=== PATIENT | female | born 1980 | race Caucasian/White ===

== ENCOUNTER → 2020-10-03 | Outpatient (CLI) | payer OTHER ==
[2020-10-03 09:59] LABS: ALBUMIN 3.9 gm/dl (3.1-4.5); BUN 9 mg/dl (7-24); CHLORIDE 108 mmol/L (98-107); POTASSIUM 3.7 mmol/L (3.5-5.1); SODIUM 140 mmol/L (136-145)
[2020-10-03 10:08] LABS: ALKALINE PHOSPHATASE 25 U/L (45-117); CHOLESTEROL 219 mg/dL (<200); CREATININE 0.66 mg/dL (0.55-1.02); FREE T4 1.05 ng/dl (0.76-1.46); HDL CHOLESTEROL 76 mg/dl (40-60); LDL CHOLESTEROL 107 mg/dL (9-159); SGOT/AST 14 IU/L (3-35); SGPT/ALT 17 U/L (12-78); THYROID STIM HORMONE (HS) 0.972 uIU/ml (0.358-4.75); TOTAL PROTEIN 8.2 gm/dL (6.4-8.2); TRIGLYCERIDES 182 mg/dl (<150); VLDL CHOLESTEROL 36 mg/dL (6-40)
[2020-10-03 10:19] LABS: BASO % 0.6 % (0.0-1.0); EOS # 0.1 10*3/uL (0.0-0.4); EOS % 1.9 % (1.0-4.0); HEMATOCRIT 38.1 % (37.0-47.0); LYMPH # 1.2 10*3/uL (1.3-4.4); LYMPH % 21.4 % (27.0-41.0); MEAN CORPUSCULAR HGB 28.1 pg (27.0-31.0); MEAN CORPUSCULAR HGB CONC 32.3 g/dl (33.0-37.0); MEAN PLATELET VOLUME 9.8 fl (9.6-12.3); MONO # 0.3 10*3/uL (0.1-1.0); MONO % 5.2 % (3.0-9.0); NEUT # 3.8 10*3/uL (2.3-7.9); NEUT % 70.5 % (47.0-73.0); PLATELET COUNT AUTOMATED 275 10*3/uL (130-400); RED BLOOD COUNT 4.38 10*6/uL (4.10-5.10); RED CELL DISTRI WIDTH 13.1 % (0-14.5); WHITE BLOOD COUNT 5.4 10*3/uL (4.8-10.8)
[2020-10-05 16:11] LABS: CODFISH, IGE <0.10 kU/L (Class 0); CORN, IGE 0.17 kU/L (Class 0/I); EGG WHITE, IGE <0.10 kU/L (Class 0); MILK (COW), IGE <0.10 kU/L (Class 0); PEANUT, IGE 0.19 kU/L (Class 0/I); SOYBEAN, IGE 0.12 kU/L (Class 0/I); WHEAT, IGE 0.16 kU/L (Class 0/I)
[2020-10-06 15:12] LABS: ALTERNARIA ALTERNATA, IGE <0.10 kU/L (Class 0); ASPERGILLUS FUMIGATU, IGE <0.10 kU/L (Class 0); BIRCH, COMMON SILVER IGE <0.10 kU/L (Class 0); CLADOSPORIUM HERBARU, IGE <0.10 kU/L (Class 0); D FARINAE MITE 3.63 kU/L (Class III); D PTERONYSSINUS 6.62 kU/L (Class IV); DOG DANDER, IGE <0.10 kU/L (Class 0); IMMUNOGLOBULIN IgE 27 IU/mL (6-495); MAPLE LEAF SYCAMORE, IGE 0.21 kU/L (Class 0/I); MOUSE URINE IGE <0.10 kU/L (Class 0); PENICILLIUM CHRYSOGENUM, IGE <0.10 kU/L (Class 0); ROUGH PIGWEED, IGE 0.16 kU/L (Class 0/I); SHEEP SORREL (DOCK), IGE 0.21 kU/L (Class 0/I); SHORT RAGWEED, IGE 0.23 kU/L (Class 0/I); TIMOTHY, IGE 0.19 kU/L (Class 0/I); WHITE ASH, IGE 0.19 kU/L (Class 0/I); WHITE MULBERRY, IGE 0.12 kU/L (Class 0/I); WHITE OAK, IGE 0.19 kU/L (Class 0/I)
== END | disposition home or self-care (01) ==
LOC: LAB 08:00 → MRI 08:00
PROVIDERS: Family Medicine; ATTEND Family Medicine
DX: M48.02 Spinal stenosis, cervical region (principal); M25.78 Osteophyte, vertebrae; R53.83 Other fatigue; R10.13 Epigastric pain; R20.2 Paresthesia of skin; R20.0 Anesthesia of skin; Z79.899 Other long term (current) drug therapy

== ENCOUNTER → 2021-01-16 | Outpatient (CLI) | payer OTHER ==
[2021-01-17 15:07] LABS: ENDOMYSIAL ANTIBODY IgA Negative (Negative)
[2021-01-17 16:08] LABS: t-TRANSGLUTAMINASE (tTG) IGA <2 U/mL (0-3)
== END | disposition home or self-care (01) ==
LOC: LAB 07:26 → MAMMO 07:26
PROVIDERS: Allergy & Immunology; ATTEND Nurse Practitioner Women's Health
DX: Z12.31 Encounter for screening mammogram for malignant neoplasm of breast (principal); K90.0 Celiac disease; K21.9 Gastro-esophageal reflux disease without esophagitis

== ENCOUNTER 2021-01-27 17:29 | Emergency (ER) | payer OTHER ==
[~2021-01-27] VITALS: Ht 154.9 cm; Wt 54.4 kg
[2021-01-27 18:12] LABS: BASO % 0.7 % (0.0-1.0); EOS # 0.2 10*3/uL (0.0-0.4); EOS % 3.8 % (1.0-4.0); HEMATOCRIT 41.8 % (37.0-47.0); LYMPH # 1.9 10*3/uL (1.3-4.4); LYMPH % 31.7 % (27.0-41.0); MEAN CELL VOLUME 88.4 fl (81.0-99.0); MEAN CORPUSCULAR HGB 28.1 pg (27.0-31.0); MEAN CORPUSCULAR HGB CONC 31.8 g/dl (33.0-37.0); MEAN PLATELET VOLUME 9.2 fl (9.6-12.3); MONO # 0.4 10*3/uL (0.1-1.0); MONO % 6.7 % (3.0-9.0); NEUT # 3.5 10*3/uL (2.3-7.9); NEUT % 56.9 % (47.0-73.0); PLATELET COUNT AUTOMATED 277 10*3/uL (130-400); RED BLOOD COUNT 4.73 10*6/uL (4.10-5.10); WHITE BLOOD COUNT 6.1 10*3/uL (4.8-10.8)
[2021-01-27 18:25] LABS: BILIRUBIN Negative (Negative); BLOOD Negative (Negative); CLARITY Clear (Clear); COLOR Yellow (Yellow); GLUCOSE Negative (Negative); KETONE Negative (Negative); LEUKO ESTERASE Negative (Negative); NITRITE Negative (Negative); UROBILINOGEN 0.2 E.U./dl (0.0-1.0)
[2021-01-27 18:29] LABS: ALKALINE PHOSPHATASE 32 U/L (45-117); BUN 12 mg/dl (7-24); CHLORIDE 104 mmol/L (98-107); CREATININE 0.77 mg/dL (0.55-1.02); LIPASE 143 U/L (73-393); POTASSIUM 3.7 mmol/L (3.5-5.1); SGOT/AST 11 IU/L (3-35); SGPT/ALT 17 U/L (12-78); SODIUM 135 mmol/L (136-145); TOTAL PROTEIN 8.7 gm/dL (6.4-8.2)
[2021-01-27 18:33] LABS: BETA-HCG, QUANT < 1.0 mIU/mL (1-3)
[2021-01-27 19:01] LABS: BACTERIA 2+; RBC 0-2 rbc/hpf (0-2)
== END 2021-01-27 19:38 | disposition home or self-care (01) ==
LOC: ED 17:29
PROVIDERS: Emergency Medicine
DX: R10.13 Epigastric pain (principal); Z88.8 Allergy status to other drugs, medicaments and biological substances

== ENCOUNTER → 2021-02-16 | Outpatient (CLI) | payer OTHER | END | disposition home or self-care (01) | LOC: NM 07:00 | PROVIDERS: ATTEND Family Medicine | DX: R10.13 Epigastric pain (principal) ==

== ENCOUNTER → 2021-02-27 | Day surgery (SDC) | payer OTHER ==
[2021-02-27] VITALS (8 sets, daily range): BP systolic 93–126; BP diastolic 46–62
[~2021-02-27] VITALS: Ht 154.9 cm; Wt 54.4 kg
[~2021-02-27] MED LIST: ALLEGRA ALLERGY60 M2 PO; CARAFATE1 GM PO; COLACE100 MG PO; PERCOCET 5-3251 EACH PO; PROTONIX40 MG PO; ZOFRAN4 MG PO
== END | disposition home or self-care (01) ==
LOC: SDC 02-24 10:15
PROVIDERS: ATTEND Surgery
DX: K81.1 Chronic cholecystitis (principal); K58.9 Irritable bowel syndrome, unspecified; Z87.891 Personal history of nicotine dependence; Z98.890 Other specified postprocedural states; Z79.899 Other long term (current) drug therapy; Z20.822 Contact with and (suspected) exposure to COVID-19